=== PATIENT | female | born 1940 | race Caucasian/White ===

== ENCOUNTER → 2019-05-02 | Outpatient (CLI) | payer OTHER ==
[~2019-05-02] MED LIST: AMLO5TAB9 PO; BENA20TA10 PO; BIOT25008 PO; CALC-840 PO; CALC-866 PO; CETI10TA86 PO; FLUT15.88 NS; MULT-1192 PO; PRAV20TA4 PO; UBID1CAP55 PO; VIT B12 PO
== END | disposition home or self-care (01) ==
LOC: RAH 10:54
PROVIDERS: ATTEND Orthopaedic Surgery
DX: M65.9 Synovitis and tenosynovitis, unspecified (principal); M75.42 Impingement syndrome of left shoulder; M67.814 Other specified disorders of tendon, left shoulder; M25.412 Effusion, left shoulder
CPT/HCPCS: 73221

== ENCOUNTER → 2019-08-04 | Outpatient (CLI) | payer OTHER ==
[~2019-08-04] MED LIST changes: +FLUT15.845 NS; -FLUT15.88 NS
== END | disposition home or self-care (01) ==
LOC: RAH 12:18
PROVIDERS: ATTEND Family Medicine
DX: M47.816 Spondylosis without myelopathy or radiculopathy, lumbar region (principal); M85.88 Other specified disorders of bone density and structure, other site; M48.061 Spinal stenosis, lumbar region without neurogenic claudication
CPT/HCPCS: 72100